=== PATIENT | male | born 1985 | race Two or more races ===

== ENCOUNTER 2017-02-11 08:07 | Emergency (ER) | payer OTHER ==
[2017-02-11 08:22] VITALS: BP 135/89
[2017-02-11] MEDS ORDERED: Ondansetron 4 MG/2 ML SDV IVPUSH ONE (08:33)
[2017-02-11] MEDS ORDERED: Sodium Chloride 0.9% 10 ML Syringe FLUSH PRN (08:33)
[2017-02-11] MEDS ORDERED: HYDROmorphone 1 MG/ML Syringe IVPUSH ONE (08:34)
[2017-02-11] MEDS ORDERED: Ketorolac 30 MG/ML SDV IVPUSH ONE (08:34)
--- NOTE | 2017-02-11 08:40 | EDM.PDOC ---
ED HPI GENERAL MEDICAL PROBLEM - General Chief Complaint: Flank Pain Stated Complaint: LEFT LOWER BACK PAIN Time Seen by Provider: 02/11/17 08:27 Source of Information: Reports: Patient History Limitations: Reports: No Limitations - History of Present Illness INITIAL COMMENTS - FREE TEXT/NARRATIVE: The patient presents with left flank pain that started about 1 1/2 hours ago. He has nausea and vomiting. He has no dysuria or hematuria. He has no fever or chills. He has no diarrhea. He has never had a kidney stone before. He has no chest pain or shortness of breath. Onset: Sudden Duration: Hour(s): (09/04) Location: Reports: Other (Left flank) Quality: Reports: Sharp Severity: Severe Improves with: Reports: None Worsens with: Reports: None Associated Symptoms: Reports: Nausea/Vomiting. 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 [No Known Home Meds] 02/11/17 [History] Past Medical History - Past Health History Medical/Surgical History: Denies Medical/Surgical History Other HEENT History: seasonal allergies Gastrointestinal History: Reports: GERD Other Musculoskeletal History: right knee sprain Social & Family History - Tobacco Use Smoking Status *Q: Never Smoker - Recreational Drug Use Recreational Drug Use: No ED ROS GENERAL - Review of Systems Review Of Systems: See Below Constitutional: Reports: No Symptoms HEENT: Reports: No Symptoms Respiratory: Reports: No Symptoms Cardiovascular: Reports: No Symptoms Endocrine: Reports: No Symptoms GI/Abdominal: Reports: No Symptoms : Reports: Flank Pain (Left). Denies: Discharge, Dysuria, Frequency Musculoskeletal: Reports: No Symptoms Skin: Reports: No Symptoms ED EXAM, RENAL/ - Physical Exam Exam: See Below Exam Limited By: No Limitations General Appearance: Alert, Moderate Distress Ears: Normal External Exam Nose: Normal Inspection Head: Atraumatic, Normocephalic Neck: Normal Inspection Respiratory/Chest: No Respiratory Distress, Lungs Clear, Normal Breath Sounds Cardiovascular: Regular Rate, Rhythm, No Edema, No Murmur GI/Abdominal: Soft, Non-Tender, No Organomegaly, No Mass Back Exam: CVA Tenderness (L) Extremities: Normal Inspection Course - Vital Signs Last Recorded V/S: Last Vital Signs Temp 97.4 F 02/11/17 08:20 Pulse 77 02/11/17 08:20 Resp 16 02/11/17 08:20 BP 135/89 02/11/17 08:20 Pulse Ox 99 02/11/17 08:20 - Orders/Labs/Meds Orders: Active Orders 24 hr Category Date Time Status Peripheral IV Care [RC] . DIRECTED Care 02/11/17 08:34 Active Sodium Chloride 0.9% [Normal Saline] 1,000 ml Med 02/11/17 08:45 Active IV ASDIRECTED Sodium Chloride 0.9% [Saline Flush] Med 02/11/17 08:33 Active 10 ml FLUSH ASDIRECTED PRN ED Antiemetic Medication Reflex [OM.PC] Stat Oth 02/11/17 08:33 Ordered Peripheral IV Insertion Adult [OM.PC] Stat Oth 02/11/17 08:33 Ordered Medication Orders Sodium Chloride (Normal Saline) 1,000 mls @ 125 mls/hr IV ASDIRECTED CAITLIN Last Admin: 02/11/17 08:47 Dose: 125 mls/hr Sodium Chloride (Saline Flush) 10 ml FLUSH ASDIRECTED PRN PRN Reason: Keep Vein Open Last Admin: 02/11/17 08:50 Dose: 10 ml Labs: Laboratory Tests 02/11/17 02/11/17 02/11/17 Range/Units 08:45 08:45 08:55 WBC 7.34 (4.23-9.07) K/mm3 RBC 5.52 (4.63-6.08) M/mm3 Hgb 15.1 (13.7-17.5) gm/L Hct 44.9 (40.1-51.0) % MCV 81.3 (79.0-92.2) fl MCH 27.4 (25.7-32.2) pg MCHC 33.6 (32.2-35.5) g/dl RDW Std Deviation 39.3 (35.1-43.9) fL Plt Count 301 (163-337) K/mm3 MPV 9.8 (9.4-12.3) fl Neut % (Auto) 47.8 (34.0-67.9) % Lymph % (Auto) 39.0 (21.8-53.1) % [place] % (Auto) 10.1 (5.3-12.2) % Eos % (Auto) 2.3 (0.8-7.0) Baso % (Auto) 0.5 (0.1-1.2) % Neut # (Auto) 3.51 (1.78-5.38) K/mm3 Lymph # (Auto) 2.86 (1.32-3.57) K/mm3 [place] # (Auto) 0.74 (0.30-0.82) K/mm3 Eos # (Auto) 0.17 (0.04-0.54) K/mm3 Baso # (Auto) 0.04 (0.01-0.08) K/mm3 Sodium 141 (136-145) mEq/L Potassium 3.2 L (3.5-5.1) mEq/L Chloride 102 (98-107) mEq/L Carbon Dioxide 25 (21-32) mEq/L Anion Gap 17.2 H (5-15) BUN 15 (7-18) mg/dL Creatinine 1.3 (0.7-1.3) mg/dL Est Cr Clr Drug Dosing 81.58 mL/min Estimated GFR (MDRD) > 60 (>60) mL/min BUN/Creatinine Ratio 11.5 L (14-18) Glucose 107 H (74-106) mg/dL Calcium 8.9 (8.5-10.1) mg/dL Total Bilirubin 0.5 (0.2-1.0) mg/dL AST 36 (15-37) U/L ALT 79 H (16-63) U/L Alkaline Phosphatase 106 (46-116) U/L Total Protein 7.8 (6.4-8.2) g/dl Albumin 4.2 (3.4-5.0) g/dl Globulin 3.6 gm/dL Albumin/Globulin Ratio 1.2 (1-2) Lipase 138 (73-393) U/L Urine Color Yellow (Yellow) Urine Appearance Clear (Clear) Urine pH 6.0 (5.0-8.0) Ur Specific [place] > or = 1.030 (1.005-1.030) Urine Protein 1+ H (Negative) Urine Glucose (UA) Negative (Negative) Urine Ketones Negative (Negative) Urine Occult Blood 2+ H (Negative) Urine Nitrite Negative (Negative) Urine Bilirubin Negative (Negative) Urine Urobilinogen 0.2 (0.2-1.0) Ur Leukocyte Esterase Negative (Negative) Urine RBC 20-30 H (0-5) /hpf Urine WBC 0-5 (0-5) /hpf Ur Epithelial Cells 0-5 (0-5) /hpf Urine Bacteria Few (FEW) /hpf Urine Mucus Moderate H (FEW) /hpf Meds: Medications Generic Name Dose Route Start Last Admin Trade Name Freq PRN Reason Stop Dose Admin Sodium Chloride 1,000 mls @ 125 mls/hr 02/11/17 08:45 02/11/17 08:47 Normal Saline IV 125 mls/hr ASDIRECTED CAITLIN Administration Sodium Chloride 10 ml 02/11/17 08:33 02/11/17 08:50 Saline Flush FLUSH 10 ml ASDIRECTED PRN Administration Keep Vein Open Discontinued Medications Generic Name Dose Route Start Last Admin Trade Name Freq PRN Reason Stop Dose Admin Hydromorphone HCl 1 mg 02/11/17 08:34 02/11/17 08:50 Dilaudid IVPUSH 02/11/17 08:35 1 mg ONETIME ONE Administration Ketorolac Tromethamine 30 mg 02/11/17 08:34 02/11/17 08:49 Toradol IVPUSH 02/11/17 08:35 30 mg ONETIME ONE Administration Ondansetron HCl 4 mg 02/11/17 08:33 02/11/17 08:47 Zofran IVPUSH 02/11/17 08:34 4 mg ONETIME ONE Administration - Re-Assessments/Exams Free Text/Narrative Re-Assessment/Exam: 02/11/17 08:39 I ordered an IV NS at 125mL/hr, zofran 4mg IV, dilaudid 1g IV, toradol 30mg IV, labs, CT, and UA. I suspect he may have a kidney stone. 02/11/17 09:36 His CBC looks good. His K was a little low at 3.2. His anion gap was elevated at 17.2. His UA shows no UTI but he has blood. His CT shows mild left sided hydronephrosis caused by a 2.7 mm stone within he distal left ureter at the UVJ. He feels much better now. I will get him on flomax and percocet for pain. Departure - Departure Time of Disposition: 09:40 Disposition: Home, Self-Care 01 Condition: good Clinical Impression: Kidney stone on right side, Ureteric colic - Discharge Information Instructions: Kidney Stones, [id number] Referrals: Allen Leyva MD [Physician] - 1 Week Forms: ED Department Discharge Additional Instructions: Drink plenty of fluids. Try to drink about 64 ounces per day or till your urine is pale yellow. Take the flomax daily for 1 week. Take the percocet as needed for pain. Please return if you are worse. Follow up with Dr Leyva if you are not better. - My Orders Last 24 Hours: My Active Orders 02/11/17 08:33 Sodium Chloride 0.9% [Saline Flush] 10 ml FLUSH ASDIRECTED PRN ED Antiemetic Medication Reflex [OM.PC] Stat Peripheral IV Insertion Adult [OM.PC] Stat 02/11/17 08:34 Peripheral IV Care [RC] . DIRECTED 02/11/17 08:45 Sodium Chloride 0.9% [Normal Saline] 1,000 ml IV ASDIRECTED - Assessment/Plan Last 24 Hours: My Active Orders 02/11/17 08:33 Sodium Chloride 0.9% [Saline Flush] 10 ml FLUSH ASDIRECTED PRN ED Antiemetic Medication Reflex [OM.PC] Stat Peripheral IV Insertion Adult [OM.PC] Stat 02/11/17 08:34 Peripheral IV Care [RC] . DIRECTED 02/11/17 08:45 Sodium Chloride 0.9% [Normal Saline] 1,000 ml IV ASDIRECTED
[2017-02-11] MEDS ORDERED: Sodium Chloride 0.9% 1,000 ML IV SCH (08:45)
--- NOTE | 2017-02-11 09:23 | CT ---
CT abdomen and pelvis Technique: Multiple axial sections were obtained from above the dome of the diaphragm inferiorly through the pubic symphysis. Intravenous and oral contrast was not utilized. Study has been performed as a ureteral stone protocol. Comparison: No previous exam. Findings: Left ureter is mildly prominent. This is due to an obstructing stone within the distal left ureter at the UVJ measuring approximately 2.7 mm. No additional calcifications are seen within the ureters. No abnormal calcifications are identified within the kidneys. Visualized lung bases are clear. Liver shows no focal parenchymal abnormality. Spleen appears within normal limits. Adrenal glands show no nodule. Pancreas is within normal limits. Gallbladder shows no calcified gallstones. Aorta shows no aneurysmal dilatation. Appendix is seen which appears normal. No pelvic mass or adenopathy is seen. Impression: 1. Mild left-sided hydronephrosis caused by a 2.7 mm stone within the distal left ureter at the UVJ. Diagnostic code #3
== END 2017-02-11 09:52 | disposition home or self-care (01) ==
LOC: JD.ED 08:07
DX: N13.2 Hydronephrosis with renal and ureteral calculous obstruction (principal); K21.9 Gastro-esophageal reflux disease without esophagitis
CPT/HCPCS: 36415; 74176; 80053; 81001; 83690; 85025; 96361; 96374; 96375; 99284; J1170; J1885; J2405; J7040; J7050